=== PATIENT | male | born 1990 | race Asian ===

== ENCOUNTER 2017-04-06 09:08 | Emergency (ER) | payer OTHER ==
[2017-04-06] MEDS ORDERED: LIDOCAINE-EPINEPH-TETRACAINE 3 ML SYRINGE TOP STA (10:12)
--- NOTE | 2017-04-06 10:22 | ED Physician Documentation ---
History of Present Illness - Stated complaint Stated Complaint: HEAD INJ - Chief complaint Chief Complaint: Laceration - Additonal information Additional information: hx from pt 26 y/o AD [place] male struck his head on an engine while at work today immunized no LOC no neck pain no numbness or weakness Review of Systems Musculoskeletal: denies: Neck pain Neurologic: reports: Head injury. denies: Focal weakness, Numbness, Syncope Endocrine: denies: Easy bruising / bleeding PD PAST MEDICAL HISTORY - Present Medications Home Medications: Ambulatory Orders Medication Instructions Recorded Confirmed No Known Home Medications [No 04/06/17 04/06/17 Known Home Medications] - Allergies Allergies/Adverse Reactions: Allergies Allergy/AdvReac Type Severity Reaction Status Date / Time NSAIDS (Non-Steroidal Allergy Anaphylaxis Verified 04/06/17 09:18 Anti-Inflamma Penicillins Allergy Anaphylaxis Verified 04/06/17 09:18 mefenamic acid AdvReac Nausea Verified 04/06/17 09:18 PD ED PE NORMAL - Vitals Vital signs reviewed: Yes - HEENT HEENT: PERRL, EOMI. 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 No: FB identified Skin layer closure: Ines (2) Other: Patient tolerated well, No complications, Neurovascular intact, Tetanus UTD Complexity: Simple Departure - Departure Disposition: 01 Home, Self Care Clinical Impression: Scalp laceration Qualifiers: Encounter type: initial encounter Qualified Code(s): S01.01XA - Laceration without foreign body of scalp, initial encounter Head injury Qualifiers: Encounter type: initial encounter Qualified Code(s): S09.90XA - Unspecified injury of head, initial encounter Condition: Good Instructions: ED Head Injury Closed, ED Laceration All Comments: Recommend tylenol and ice as needed for the pain May shower Apply antibiotic ointment twice a day [place] out 7-10 days - this can be done at [facility] This wound is low risk for infection, but despite good wound care, some cuts get infected - if you develop redness swelling drainage increasing pain or fever , come back to the ER And please get your blood pressure rechecked - it was high today Forms: Activity restrictions
[2017-04-06] MEDS ORDERED: LIDOCAINE-EPINEPH-TETRACAINE 3 ML SYRINGE TOP ONE (10:24)
[2017-04-06 11:46] VITALS: BP 135/80
== END 2017-04-06 11:44 | disposition home or self-care (01) ==
LOC: ED 09:08
DX: S01.01XA Laceration without foreign body of scalp, initial encounter (principal); W22.8XXA Striking against or struck by other objects, initial encounter; Y92.138 Other place on military base as the place of occurrence of the external cause; Y99.1 Military activity
CPT/HCPCS: 12001; 99282; 99283

== ENCOUNTER 2018-03-27 15:26 | Emergency (ER) | payer OTHER ==
--- NOTE | 2018-03-27 16:30 | ED Physician Documentation ---
PD HPI BACK INJURY - Stated complaint Stated Complaint: BACK PX - History obtained from History obtained from: Patient - History of Present Illness Location: Lower Type of injury: Twist, Blunt / blow (he was playing football yesterday and impacted another player forcefully and had onset lower back pain that has persisted.) Recently seen: Not recently seen PD PAST MEDICAL HISTORY - Past Medical History Past Medical History: No Cardiovascular: None Respiratory: None Neuro: None Endocrine/Autoimmune: None GI: None : None HEENT: None Psych: None Musculoskeletal: None Derm: None - Past Surgical History Past Surgical History: No - Present Medications Home Medications: Ambulatory Orders Medication Instructions Recorded Confirmed Cyclobenzaprine [Flexeril] 10 mg PO TID PRN #30 tablet 03/27/18 Dexamethasone [Decadron] 4 mg PO DAILY #5 tablet 03/27/18 Tramadol HCl 50 mg PO Q6H PRN #20 tablet 03/27/18 - Allergies Allergies/Adverse Reactions: Allergies Allergy/AdvReac Type Severity Reaction Status Date / Time NSAIDS (Non-Steroidal Allergy Anaphylaxis Verified 03/27/18 15:37 Anti-Inflamma Penicillins Allergy Anaphylaxis Verified 03/27/18 15:37 mefenamic acid AdvReac Nausea Verified 03/27/18 15:37 - Social History Does the pt smoke?: Yes Smoking Status: Current every day smoker Does the pt drink ETOH?: No Does the pt have substance abuse?: No - Immunizations Immunizations are current?: Yes - POLST Patient has POLST: No PD ED PE NORMAL - Vitals Vital signs reviewed: Yes - General General: Alert and oriented X 3, No acute distress, Well developed/nourished - Cardiac Cardiac: RRR, No murmur - Respiratory Respiratory: Clear bilaterally - Abdomen Abdomen: Soft, Non tender - Back Back: No CVA TTP, No spinal TTP (not directly in spinal area. Has tenderness mostly lateral muscles. NO rash nor sores. ) - Derm Derm: Normal color, Warm and dry Results - Vitals Vitals: Vital Signs - 24 hr 03/27/18 15:33 Temperature 36.2 C L Heart Rate 88 Respiratory 16 Rate Blood Pressure 137/64 H O2 Saturation 100 Oxygen O2 Source Room air - Rads (name of study) lumbar spine Radiology: Prelim report reviewed (no fractures nor acute process. ) PD MEDICAL DECISION MAKING - ED course Complexity details: reviewed old records (got xray lumbar given the abruptness of the pain related to impact injury playing football. ), reviewed results (normal bony alignment. ), considered differential, d/w patient - Sepsis Event Vital Signs: Vital Signs - 24 hr 03/27/18 15:33 Temperature 36.2 C L Heart Rate 88 Respiratory 16 Rate Blood Pressure 137/64 H O2 Saturation 100 Oxygen O2 Source Room air Departure - Departure Disposition: 01 Home, Self Care Clinical Impression: Low back strain Qualifiers: Encounter type: initial encounter Qualified Code(s): S39.012A - Strain of muscle, fascia and tendon of lower back, initial encounter Condition: Stable Record reviewed to determine appropriate education?: Yes Instructions: ED Sprain Strain Lumbar Follow-Up: Jeff Howard MD [Primary Care Provider] - Prescriptions: Cyclobenzaprine [Flexeril] 10 mg PO TID PRN #30 tablet PRN Reason: Spasms Dexamethasone [Decadron] 4 mg PO DAILY #5 tablet Tramadol HCl 50 mg PO Q6H PRN #20 tablet PRN Reason: Pain Comments: Minimal lifting bending and twisting today and tomorrow. I wrote your work note for today. All up with your primary care tomorrow as planned. Use Decadron steroid anti-inflammatory for the next few days. Flexeril muscle relaxant as needed. Add Tylenol or tramadol if needed for pain. Your x-ray appeared normal without any bony abnormality. Presume this is muscle and ligament injury from the impact. Forms: Activity restrictions Discharge Date/Time: 03/27/18 17:31
[2018-03-27] MEDS ORDERED: METHOCARBAMOL 500 MG TABLET PO STA (16:48)
[2018-03-27] MEDS ORDERED: ACETAMINOPHEN 325 MG TABLET PO STA (16:48)
[2018-03-27] MEDS ORDERED: DEXAMETHASONE 10 MG/ML VIAL PO STA (16:49)
[2018-03-27] MEDS ORDERED: CHERRY SYRUP 10 ML UDC PO ONE (16:55)
[2018-03-27 17:27] VITALS: BP 135/56
--- NOTE | 2018-03-27 17:36 | XRAY Report ---
Reason: low back pain after impact playing football Procedure Date: 03/27/2018 Accession Number: [id number] / [id number] Procedure: XR - Lumbar Spine 2 View CPT Code: FULL RESULT: EXAM: LUMBOSACRAL SPINE RADIOGRAPHY EXAM DATE: 03/27/2018 05:10 PM. CLINICAL HISTORY: Low back pain after impact playing football. COMPARISONS: None. TECHNIQUE: 2 views. FINDINGS: Alignment: No evidence of dislocation. Bones: No fractures or focal bony lesions. Disks/Facets: No evidence of significant degenerative disease. Sacroiliac Joints: Unremarkable. Soft Tissues: No unexpected findings. IMPRESSION: Negative lumbar spine radiography. [facility]
== END 2018-03-27 17:31 | disposition home or self-care (01) ==
LOC: ED 15:26
DX: S39.012A Strain of muscle, fascia and tendon of lower back, initial encounter (principal); W03.XXXA Other fall on same level due to collision with another person, initial encounter; Y93.61 Activity, american tackle football; F17.200 Nicotine dependence, unspecified, uncomplicated
CPT/HCPCS: 72100; 99283; A9270

== ENCOUNTER 2018-09-08 15:00 | Emergency (ER) | payer OTHER ==
--- NOTE | 2018-09-08 15:22 | ED Physician Documentation ---
History of Present Illness - Stated complaint Stated Complaint: BODY ACHES/CONGESTION - Chief complaint Chief Complaint: General - History obtained from History obtained from: Patient - History of Present Illness Pain level max: 0 - Additonal information Additional information: Patient is a previously healthy 27-year-old male presenting with just over 1 week of general malaise, fever, and URI symptoms. Patient denies any particular sick contacts at time of onset. Patient reports that he initially had some nasal congestion and rhinorrhea, which have mostly resolved, but is still experiencing fever and muscle aches.Patient has an allergy to NSAIDs, so he is only taken Tylenol, with minimal relief. Patient denies headache, neck pain, back pain, chest pain, abdominal pain, vomiting, urine or stool changes, rash, but admits to shortness of breath with cough.Patient denies any particular factors that improve or worsen his symptoms.Patient did receive flu vaccine this year. Review of Systems Constitutional: reports: Fever, Chills Nose: reports: Rhinorrhea / runny nose, Congestion Cardiac: denies: Chest pain / pressure Respiratory: reports: Cough GI: denies: Abdominal Pain, Vomiting, Diarrhea : denies: Dysuria Skin: denies: Rash PD PAST MEDICAL HISTORY - Past Medical History Past Medical History: No Cardiovascular: None Respiratory: None Neuro: None Endocrine/Autoimmune: None GI: None : None HEENT: None Psych: None Musculoskeletal: None Derm: None - Past Surgical History Past Surgical History: No - Present Medications Home Medications: Ambulatory Orders Medication Instructions Recorded Confirmed Cyclobenzaprine [Flexeril] 10 mg PO TID PRN #30 tablet 03/27/18 Dexamethasone [Decadron] 4 mg PO DAILY #5 tablet 03/27/18 Tramadol HCl 50 mg PO Q6H PRN #20 tablet 03/27/18 - Allergies Allergies/Adverse Reactions: Allergies Allergy/AdvReac Type Severity Reaction Status Date / Time NSAIDS (Non-Steroidal Allergy Anaphylaxis Verified 03/27/18 15:37 Anti-Inflamma Penicillins Allergy Anaphylaxis Verified 03/27/18 15:37 shellfish derived Allergy Anaphylaxis Verified 09/08/18 15:04 mefenamic acid AdvReac Nausea Verified 03/27/18 15:37 - Social History Does the pt smoke?: Yes Smoking Status: Current every day smoker Does the pt drink ETOH?: No Does the pt have substance abuse?: No - Immunizations Immunizations are current?: Yes - POLST Patient has POLST: No PD ED PE NORMAL - General General: Alert and oriented X 3, No acute distress, Well developed/nourished - HEENT HEENT: Atraumatic, Moist mucous membranes, Pharynx benign, Other (No evidence of erythema, exudate, or swelling to tonsils or pharynx. No uvula deviation, uvulitis or peritonsillar abscess present) - Cardiac Cardiac: No murmur, Other (Tachycardic) - Respiratory Respiratory: No respiratory distress, Other (Mildly diminished throughout without rhonchi, rales, wheezes) - Abdomen Abdomen: Normal bowel sounds, Soft, Non tender, Non distended - Derm Derm: Normal color, Warm and dry, No rash - Extremities Extremities: No deformity - Neuro Neuro: No motor deficit, No sensory deficit - Psych Psych: Normal mood, Normal affect Results - Vitals Vitals: Vital Signs - 24 hr 09/08/18 09/08/18 15:05 16:30 Temperature 39.4 C H 38.1 C H Heart Rate 114 H Respiratory 18 Rate Blood Pressure 128/58 L O2 Saturation 99 Oxygen O2 Source Room air - Labs Labs: Laboratory Tests 09/08/18 09/08/18 09/08/18 15:45 16:00 16:00 WBC 8.3 RBC 5.20 Hgb 14.4 Hct 41.9 L MCV 80.6 MCH 27.7 MCHC 34.4 RDW 12.5 Plt Count 265 MPV 7.6 Neut # (Auto) 6.9 H Lymph # (Auto) 0.4 L Rab[place] # (Auto) 0.8 Eos # (Auto) 0.1 Baso # (Auto) 0.1 Absolute Nucleated RBC 0.00 Nucleated RBC % 0.0 Sodium 137 Potassium 3.4 L Chloride 106 Carbon Dioxide 22 Anion Gap 9.0 BUN 12 Creatinine 1.1 Estimated GFR (MDRD) 81 L Glucose 103 H Calcium 9.4 Total Bilirubin 0.3 AST 38 ALT 47 Alkaline Phosphatase 77 Total Protein 7.9 Albumin 4.4 Globulin 3.5 Albumin/Globulin Ratio 1.3 Lipase 26 Influenza A (Rapid) POSITIVE H Influenza B (Rapid) Negative PD MEDICAL DECISION MAKING - ED course Complexity details: re-evaluated patient, considered differential, d/w patient ED course: Most concerning for influenza, viral illness, URI, broncitis given symptomatology, duration of symptoms, and physical exam findings. Patient arrived febrile and slightly tachycardic, likely due to his fever. Given patient's allergy to NSAIDs, he received Tylenol and upon reevaluation, fever declined appropriately. Given his fever and concern for different infections, obtained further evaluation with screening labs and also gave 1 L normal saline. Screening lab work relatively unremarkable including no significant leukocytosis. Chest x-ray also obtained to further evaluate for possible etiologies such as pneumonia given patient's cough and shortness of breath. Chest x-ray returned without evidence of acute abnormality. Do not have suspicion for other infections including meningitis, sinusitis, otitis media or externa, mastoiditis, intraoral infections, or intra-abdominal infections. Feel the patient is likely experiencing influenza or other viral illness. Patient is outside of the treatment window for Tamiflu, but discussed testing with patient and given his status, patient thought testing was best.Influenza testing did return positive for influenza A. Discussed results and recommendations with patient including providing work note, supportive cares, return precautions, and appropriate follow-up. Patient voiced understanding and is comfortable with discharge plan. Departure - Departure Disposition: 01 Home, Self Care Clinical Impression: Influenza A Condition: Good Instructions: ED Flu Follow-Up: Jeff Howard MD [Primary Care Provider] - Comments: Recommend regular, consistent use of Tylenol approximately every 6-8 hours, not going over 4 g in 1 day, to help control pain and fever. Also recommend hydration with Powerade/Gatorade, as well as rest. Follow-up with primary care physician in next 2-3 days and return to ED sooner if experience worsening fever despite medications, difficulty breathing, rash, or other concerns. Please be aware that you cannot attend school, work, or be around others until you have had no fever for at least 24 hours as you will be contagious. Forms: Activity restrictions
[2018-09-08] MEDS ORDERED: ACETAMINOPHEN 500 MG TABLET PO STA (15:23)
[2018-09-08] MEDS ORDERED: SODIUM CHLORIDE 0.9% 1,000 ML IV ONE (15:53)
[2018-09-08 16:11] LABS: BASOPHILS # (AUTO) 0.1 10^3/uL (0.0-0.1); BASOPHILS % (AUTO) 1.2 %; EOSINOPHILS # (AUTO) 0.1 10^3/uL (0.0-0.7); EOSINOPHILS % (AUTO) 1.4 %; HGB - HEMOGLOBIN 14.4 g/dL (14.0-18.0); LYMPHOCYTES # (AUTO) 0.4 10^3/uL (1.5-3.5); LYMPHOCYTES % (AUTO) 4.3 %; MEAN CORPUSCULAR HEMOGLOBIN 27.7 pg (27.0-31.0); MEAN CORPUSCULAR HGB CONC 34.4 g/dL (32.0-36.0); MEAN CORPUSCULAR VOLUME 80.6 fL (80.0-94.0); MEAN PLATELET VOLUME 7.6 fL (7.4-11.4); MONOCYTES # (AUTO) 0.8 10^3/uL (0.0-1.0); NEUTROPHILS # (AUTO) 6.9 10^3/uL (1.5-6.6); NEUTROPHILS % (AUTO) 83.1 %; PLT - PLATELET COUNT 265 10^3/uL (130-450); RED CELL DISTRIBUTION WIDTH 12.5 % (12.0-15.0); WHITE BLOOD COUNT 8.3 x10^3/uL (4.8-10.8)
--- NOTE | 2018-09-08 16:12 | XRAY Report ---
Reason: fever, productive cough Procedure Date: 09/08/2018 Accession Number: [id number] / [id number] Procedure: XR - Chest 2 View X-Ray CPT Code: 10781 FULL RESULT: EXAM: CHEST RADIOGRAPHY EXAM DATE: 09/08/2018 03:54 PM. CLINICAL HISTORY: Fever and productive cough COMPARISON: None. TECHNIQUE: 2 views. FINDINGS: Lungs/Pleura: Normal volumes. No focal consolidation or evidence of edema. No pleural effusion or pneumothorax. Mediastinum: Normal cardiomediastinal contour. Other: Minimal right convex curvature of the mid thoracic spine. IMPRESSION: No acute cardiopulmonary abnormality. [facility]
[2018-09-08 16:21] LABS: ALBUMIN 4.4 g/dL (3.2-5.5); ALBUMIN/GLOBULIN RATIO 1.3 (1.0-2.2); BILIRUBIN,TOTAL 0.3 mg/dL (0.2-1.0); CALCIUM 9.4 mg/dL (8.5-10.3); CREATININE 1.1 mg/dL (0.6-1.2); TOTAL PROTEIN 7.9 g/dL (6.7-8.2)
[2018-09-08 17:04] VITALS: BP 125/56
== END 2018-09-08 17:17 | disposition home or self-care (01) ==
LOC: ED 15:00
DX: J10.1 Influenza due to other identified influenza virus with other respiratory manifestations (principal); F17.200 Nicotine dependence, unspecified, uncomplicated; Z88.8 Allergy status to other drugs, medicaments and biological substances; Z88.0 Allergy status to penicillin
CPT/HCPCS: 36415; 71046; 80053; 83690; 85025; 87275; 87276; 96360; 99283; A9270